=== PATIENT | female | born 1945 | race Caucasian/White ===

== ENCOUNTER → 2016-09-14 | Outpatient (CLI) | payer OTHER, MEDICARE ==
[2015-09-11 13:30] VITALS: BP 138/76; PULSE 71
[~2016-09-14] MED LIST: ALBU1AER9 INTNAS; CALCTAB5 PO; CETI10TA84 PO; CHOL100010 PO; FLUT0.0529 INTNAS; FLUT220A INH; MONT1TAB5 PO; MULT1TAB79 PO; OMEP20TA PO; PRAV20TA PO; VERA240T20 PO; [UNRECOGNIZED DRUG - CODE] INTNAS
[2016-09-14 12:59] VITALS: BP 156/78; PULSE 76; TEMP 36.8; O2SAT 96
--- NOTE | 2016-09-14 17:39 | Radiation Oncology Follow-Up ---
Radiation Oncology Follow-Up Date of Visit September 14, 2016. Reason For Visit Annual follow-up Radiation Completion Date 02/12/15 Diagnosis (1) Breast cancer Status: Resolved Onset Date: 06/20/2014 Histology Subtype: ductal Stage: l (A) Permanent Comment: Abnormal left breast mammogram Status post stereotactic biopsy 06/20/2014 revealing infiltrating ductal carcinoma Estrogen receptor negative, progesterone receptor negative, HER-2/jessica negative Status post lumpectomy and sentinel lymph node biopsy 07/07/2014 Stage [id number] Reexcision 07/23/2014 Systemic chemotherapy will complete 11/13/2014 4 cycles of Taxotere and cyclophosphamide Status post completion of radiation therapy 02/12/2015 received 6120 cGy Last Edited By: Sera Anaya on Mar 12, 2015 15:14 History of Present Illness Ms. Garner is a 71-year-old female who is been followed with screening mammograms. On 06/04/2014 she underwent bilateral screening mammogram. The patient does have a family history the patient's mother diagnosed at age 62 and a paternal aunt with breast cancer. The tissue within the left breast was noted to be slightly denser than the right that is stable compared to prior studies. However a new 1.0 x 1.0 x 0.6 cm nodule is noted in the left breast 12 cm from the nipple at the 2 to 3 o'clock position. Additional imaging studies were recommended. On 06/10/2014 patient underwent a unilateral breast ultrasound. At the 2:30 position of the left breast ultrasound demonstrated a 0.65 x 0.7 to by 0.66 cm hypoechoic mass that correlates with the small mass identified on diagnostic mammogram. Additionally noted in the left breast at the 1:00 region with a small normal-appearing lymph node. A biopsy of this abnormal lesion was recommended. On 06/20/2014 the patient underwent a stereotactic biopsy of the lesion at the 2 :30 position of the left breast. This tissue revealed an infiltrating adenocarcinoma grade 2 with no lymphovascular or perineural invasion identified. Specimen: [id number]. This tissue was reviewed at [facility] and reported on . The specimen was estrogen receptor negative (0%, H score = 0). Progesterone receptors were negative (0%, H score = 0). HER-2/jessica was equivocal, score 2+, week/moderate staining in 40% of the tumor) the tissue was HER-2/jessica negative by FISH analysis confirming the immunohistochemical report. Case: [id number]. Patient was seen by Dr. Anand who proceeded with a left partial mastectomy and sentinel node biopsy on 07/09/2014. This tissue revealed residual invasive ductal carcinoma NOS. The tumor measured up to 0.5 cm but not well defined. The histologic grade was 3 of 3. The margins were uninvolved by invasive carcinoma although the tumor extended to within less than 0.1 cm of the peripheral margin. 2 sentinel lymph nodes were identified and both were negative for metastatic carcinoma. The pathologic stage was pT1a/b pN0(i-), ER negative NH negative HER- 2/jessica negative. Specimen: [id number]. The patient subsequently underwent a reexcision on 07/23/2014. The tissue showed no residual carcinoma. Specimen: [id number]. Patient was seen by Dr. Tom Cervantes for evaluation discussion of the role of systemic chemotherapy. Given the findings of a triple negative tumor he recommended systemic chemotherapy consisting of Taxotere and cyclophosphamide. Patient agreed and has completed 3 out of a planned 4 cycles. She is scheduled for her last cycle on 10/30/2014. She is tolerated these fairly well. Following the completion of her fourth cycle we were asked to evaluate her for discussion of the role of adjuvant radiation. She returned for CT simulation. Decision was to treat with conventional therapy. Radiation therapy was completed 02/12/2015 received 6120 cGy. Interim History She's been doing well over this past year. She denies any changes to her breast. She has noted no masses or tenderness and no change of the axilla. She is up-to-date on mammography. She had a left breast mammogram 05/13/2016. This showed probable benign left mammogram findings. Recommend bilateral mammography in 6 months. BI-RADS Category 3. Follow-up mammography is scheduled for November. Allergies Coded Allergies: Pegfilgrastim (Unverified Adverse Reaction, Severe, diverticulitis with perforation, 12/11/14) Pneumococcal Polysaccharides (Unverified Adverse Reaction, Severe, pain shoulder , chest, 09/11/15) Home Medications Scheduled Calcium (Caltrate), 1,200 MG PO DAILY Cetirizine (Zyrtec), 10 MG PO DAILY Cholecalciferol (Vitamin D), 1,000 INTER.UNIT PO DAILY Fluticasone Propionate Hfa (Flovent Hfa 220MCG Inhaler), 2 PUFFS INH BID Fluticasone Propionate (Nasal) (Flonase), 2 SPRAY INTNAS DAILY Montelukast Sodium (Montelukast Sodium), 10 MG PO HS Multiple Vitamins W/ Minerals (Womens Daily Formula), 1 TAB PO DAILY Pravastatin (Pravachol ), 10 MG PO DAILY Verapamil Sust Rel (Calan Sr Ext Rel), 240 MG PO DAILY Scheduled PRN Albuterol (Proair Hfa), 2 PUFF INTNAS Q4 PRN for Cough Saline (Nasal Moisturizing [place]), 2 SPRAYS INTNAS BID PRN for Nasal Congestion Review of Systems Gastrointestinal: Symptoms: WNL Oral: Symptoms: No Problems Respiratory: Symptoms: WNL Sputum Character: clear Other Respiratory: post nasal drip seasonal allergies Urinary: Symptoms: WNL Skin: Symptoms: No Problems Breast: Right Upper Arm Measurement: 26.9 Right Mid Arm Measurement: 22.4 Right Wrist Measurement: 15.0 Left Upper Arm Measurement: 26.0 Left Mid Arm Measurement: 20.7 Left Wrist Measurement: 14.8 Arm Dominence: Right Patient Cosmetic Evaluation: Excellent Staff Cosmetic Evalaluation: Excellent Physical Exam Vital Signs Date Time Temp Pulse Resp B/P Pulse Ox O2 Delivery O2 Flow Rate FiO2 09/14/16 12:59 36.8 76 16 156/78 96 Pain: Pain Onset: after third chemo treatment Pain Duration: constant Patient Pain Scale: 0 - 10 Initial Pain Intensity: 3.0 Pain Description: Burning Additional Comments: numbness and tingling sensation as well Fatigue: None General Appearance: no apparent distress Eyes: normal inspection, EOMI ENT: normal ENT inspection, hearing grossly normal Neck: no adenopathy, thyroid normal Respiratory/Chest: lungs clear, no respiratory distress, no accessory muscle use Breast: Breast examination reveals well-healed incisions of the left breast. There are no masses or tenderness and no axillary adenopathy. She has no skin retractions or nipple changes. Using the [place] score cosmesis she has a excellent outcome. The right breast showed no masses or tenderness and no axillary adenopathy. Cardiovascular: regular rate, rhythm, no gallop, no murmur Abdomen: non tender Extremities: no pedal edema Neurologic/Psychiatric: no motor/sensory deficits, alert, normal mood/affect Skin: warm/dry Lymphatic: no adenopathy Additional Studies Mammography as reviewed above performed at [facility] 2016. Assessment & Plan Plan: Continue with follow-up mammography. This is scheduled for November 2016. Continue regular follow-up with Dr. Cervantes, Dr. Anand, and Dr. Corley. We asked her to return to our office in 1 year. She may call if she has any questions or concerns in the interim. Total Time In Follow-Up I said 20 minutes speaking to the patient and performing examination. I spent 15 minutes reviewing information and completing this note. Copy To Deon Corley M.D.; Miguel Anand M.D.; Tom Cervantes M.D. Problem Qualifiers (1) Breast cancer: Breast location: upper outer quadrant of breast Estrogen receptor status: negative Patient sex: female Laterality: left Qualified Codes: C50.412 - Malignant neoplasm of upper-outer quadrant of left female breast; Z17.1 - Estrogen receptor negative status [ER-]
== END | disposition home or self-care (01) ==
LOC: C.ONC 12:20
PROVIDERS: ATTEND Physician Assistant Medical
DX: Z08 Encounter for follow-up examination after completed treatment for malignant neoplasm (principal); Z92.3 Personal history of irradiation; Z85.3 Personal history of malignant neoplasm of breast